=== PATIENT | male | born 1980 | race Hispanic/Latino ===

== ENCOUNTER 2020-02-22 20:02 | Emergency (ER) | payer OTHER ==
[~2020-02-22] VITALS: Ht 175.3 cm; Wt 117.9 kg
[2020-02-22] MEDS ORDERED: ADENOSINE 3 MG/ML 2ML VIAL IV ONE ×2 (20:08)
[2020-02-22 20:26] LABS: BASOPHILS % (AUTO) 0.4 % (0.0-5.0); HEMATOCRIT 49.5 % (42-54); LYMPHOCYTES % (AUTO) 31.6 % (21.0-51.0); MEAN CORPUSCULAR HEMOGLOBIN 28.6 pg (27.0-33.0); MEAN CORPUSCULAR HGB CONC 34.3 g/dL (32.0-36.0); MEAN CORPUSCULAR VOLUME 83.3 fL (79-99); MONOCYTES % (AUTO) 7.8 % (3.0-13.0); NEUTROPHILS % (AUTO) 58.6 % (40.0-77.0); PLATELET COUNT (AUTO) 211 K/uL (130-400); RED BLOOD CELL COUNT(AUTO) 5.94 MIL/uL (4.50-6.20); RED CELL DISTRIBUTION WIDTH 12.4 % (11.0-15.5); WHITE BLOOD COUNT (AUTO) 12.5 K/uL (4.8-10.8)
[2020-02-22] MEDS ORDERED: METOPROLOL TARTRATE 1 MG/ML 5ML VIAL IV ONE (20:30)
[2020-02-22 20:38] LABS: INR 0.96 (0.85-1.15); PARTIAL THROMBOPLASTIN TIME 26.7 SEC (26.3-35.5); PROTHROMBIN TIME 10.4 SEC (9.6-11.6)
[2020-02-22] MEDS ORDERED: DILTIAZEM HCL 60 MG TABLET ONE (20:45)
[2020-02-22] MEDS ORDERED: DILTIAZEM HCL 120 MG CAP.SR.24H PO ONE (20:46)
[2020-02-22 21:02] LABS: ALBUMIN 4.2 g/dL (3.5-5.0); BILIRUBIN,TOTAL 0.6 mg/dL (0.2-1.0); CREATININE 1.2 mg/dL (0.5-1.5); TOTAL PROTEIN, SERUM 7.3 g/dL (6.0-8.3)
[2020-02-22 21:10] LABS: MAGNESIUM 1.7 mg/dL (1.80-2.40); THYROID STIMULATING HORMONE 2.76 uIU/mL (0.36-3.74)
[2020-02-22] MEDS ORDERED: DILTIAZEM HCL 180 MG CAP.SR.24H PO SCH (21:45)
[2020-02-22] MEDS ORDERED: MAGNESIUM OXIDE 400 MG TABLET PO ONE (22:34)
[2020-02-22] MEDS ORDERED: INSULIN HUMULIN R 100 UNIT/ML 3ML ONE (22:35)
== END 2020-02-23 00:52 | disposition home or self-care (01) ==
LOC: EDH 20:02
DX: I47.1 Supraventricular tachycardia (principal); E83.42 Hypomagnesemia; E72.51 Non-ketotic hyperglycinemia; E78.00 Pure hypercholesterolemia, unspecified
CPT/HCPCS: 36415; 71045; 80053; 82550; 82948 ×2; 83735; 84443; 84484; 85025; 85610; 85730; 93005 ×2; 96374; 96375; 99291; J0153; J1815; J3490

== ENCOUNTER 2021-05-05 09:18 | Observation (INO) | payer OTHER ==
[~2021-05-05] VITALS: Ht 175.3 cm; Wt 125.3 kg
[2021-05-05 09:23] VITALS: BP 137/98
[2021-05-05 09:50] LABS: BASOPHILS % (AUTO) 0.4 % (0.0-5.0); EOSINOPHILS % (AUTO) 1.4 % (0.0-8.0); HEMATOCRIT 47.6 % (42-54); LYMPHOCYTES % (AUTO) 21.2 % (21.0-51.0); MEAN CORPUSCULAR HEMOGLOBIN 28.7 pg (27.0-33.0); MEAN CORPUSCULAR VOLUME 84.2 fL (79-99); MONOCYTES % (AUTO) 7.7 % (3.0-13.0); NEUTROPHILS % (AUTO) 68.8 % (40.0-77.0); PLATELET COUNT (AUTO) 188 K/uL (130-400); RED BLOOD CELL COUNT(AUTO) 5.65 MIL/uL (4.50-6.20); WHITE BLOOD COUNT (AUTO) 9.8 K/uL (4.8-10.8)
[2021-05-05 10:00] LABS: INR 1.01 (0.85-1.15)
[2021-05-05] MEDS ORDERED: ASPIRIN 325MG TAB PO ONE (10:00)
[2021-05-05] MEDS ORDERED: NITROGLYCERIN 1GM OINT 1 INCH/1GM TD ONE (10:00)
[2021-05-05 10:01] LABS: PARTIAL THROMBOPLASTIN TIME 26.7 SEC (26.3-35.5)
[2021-05-05 10:08] LABS: POTASSIUM 3.7 mmol/L (3.5-5.1)
[2021-05-05 10:23] LABS: ALBUMIN 3.9 g/dL (3.5-5.0); BILIRUBIN,TOTAL 0.9 mg/dL (0.2-1.0); TOTAL PROTEIN, SERUM 7.4 g/dL (6.0-8.3)
[2021-05-05 10:26] LABS: B-TYPE NATRIURETIC PEPTIDE < 5 pg/mL (0-100)
[2021-05-05 12:13] LABS: THYROID STIMULATING HORMONE 1.24 uIU/mL (0.36-3.74)
[2021-05-05 12:19] LABS: HEMOGLOBIN A1C 8.9 % (4.0-6.0)
[2021-05-05 12:38] VITALS: BP 138/80
[2021-05-05] MEDS: METOPROLOL TARTRATE 25 MG TAB PO SCH ×2 (13:15→21:35)
[2021-05-05] MEDS ORDERED: REGADENOSON 0.4 MG/5 ML PF SYG IVP SCH (13:30)
[2021-05-05 16:44] VITALS: BP 126/79
[2021-05-05] MEDS ORDERED: METF-444 PO (18:10)
[2021-05-05] MEDS ORDERED: LISI20TA24 PO (18:11)
[2021-05-05 20:00] VITALS: BP 148/67
[2021-05-05] MEDS ORDERED: ATORVASTATIN 20 MG TABLET PO SCH (21:00)
[2021-05-05] MEDS ORDERED: ACETAMINOPHEN 325 MG TAB PO PRN (21:30)
[2021-05-06] VITALS: BP 126/64
[2021-05-06 04:00] VITALS: BP 140/69
[2021-05-06 08:00] VITALS: BP 151/90
[2021-05-06] MEDS ORDERED: ASPIRIN 81MG CHEW TAB PO SCH (09:00)
[2021-05-06] MEDS: METOPROLOL TARTRATE 25 MG TAB PO SCH (09:36)
[2021-05-06 11:47] VITALS: BP 148/99
[2021-05-06] MEDS ORDERED: ASPI-1197 PO (13:23)
[2021-05-06] MEDS ORDERED: METO25 PO (13:23)
[2021-05-06] MEDS ORDERED: ATOR10 PO (13:23)
[2021-05-07] MEDS ORDERED: PANTOPRAZOLE 40 MG TAB DR PO SCH (09:00)
== END 2021-05-06 16:10 | disposition home or self-care (01) ==
LOC: EDH 09:18 → EDHIP 11:21 → 4DH 13:20
PROVIDERS: ADMIT Internal Medicine; ATTEND Internal Medicine
DX: I24.9 Acute ischemic heart disease, unspecified (principal); R07.89 Other chest pain; I10 Essential (primary) hypertension; E11.9 Type 2 diabetes mellitus without complications; E78.5 Hyperlipidemia, unspecified; Z79.82 Long term (current) use of aspirin; Z79.84 Long term (current) use of oral hypoglycemic drugs
CPT/HCPCS: 36415; 71045; 78452; 80053; 80061; 82948 ×4; 83036; 83880; 84443; 84484 ×4; 85025; 85378; 85610; 85730; 93005 ×2; 93017; 93306; 93356; 99285; A9500 ×2; G0378 ×25; J2785; 96374